=== PATIENT | female | born 1975 | race African-American/Black ===

== ENCOUNTER 2018-08-26 16:53 | Emergency (ER) | payer SELFPAY ==
[2018-08-26 17:42] LABS: Absolute Lymphocytes (CBC) 1.7 K/uL (0.7-4.9); Absolute Monocytes 0.3 K/uL (0.1-1.3); Basophils % 0.8 % (0-1.3); Eosinophils % 1.1 % (0-4.4); Hematocrit 34.8 % (36.0-45.0); Lymphocytes % 32.7 % (15.3-44.8); MPV 10.4 fL (7.6-11.3); Monocytes % 5.7 % (3.3-12.3); RBC Red Blood Cell Count 4.68 M/uL (3.86-4.86)
[2018-08-26 17:56] LABS: BUN Blood Urea Nitrogen 5 mg/dL (7-18); Bicarbonate 23 mmol/L (21-32); Glucose Level 94 mg/dL (74-106); Potassium 3.7 mmol/L (3.5-5.1); Sodium Level 140 mmol/L (136-145)
--- NOTE | 2018-08-26 18:36 | RAD REPORT ---
EXAM DESCRIPTION: CT - Stone Protocol - 08/26/2018 6:26 pm CLINICAL HISTORY: Flank pain. FLANK PAIN COMPARISON: <Comparisons> TECHNIQUE: Axial images were obtained without oral or IV contrast. Lack of contrast limits solid org an and vascular assessment. The [id number] spans the entirety of the system partially obscuring uppermost abdomen and lung bases. Coronal reformatted images were obtained and reviewed. All CT scans are performed using dose optimization technique as appropriate and may include automated exposure control or mA/KV adjustment according to patient size. FINDINGS: The lower lung bundy are clear. Imaged portions of the liver and spleen show no suspicious findings on non-contrast imaging.Cholecyst ectomy clips. The pancreas and adrenal glands are normal. No pathologic lymphadenopathy in the abdome n or pelvis. A punctate calculus is likely present in the distal right ureter without hydronephrosis. Additional p unctate nephrolithiasis is present involving the right kidney inferior calyx. No bowel obstruction, free air, free fluid or abscess. Normal appendix noted. No significant bony abnormality. Enlarged multi-fibroid uterus noted. IMPRESSION: Punctate calculus distal right ureter without hydronephrosis. Additional punctate right nephrolithiasis.
[2018-08-26 18:39] LABS: Urine Blood NEGATIVE (NEG); Urine Glucose NEGATIVE (NEG); Urine Protein 1+ (NEG); Urine Specific Gravity >1.030 (1.005-1.030); Urine pH 5.5 (5.0-7.0)
[2018-08-26 18:48] LABS: Urine RBC NONE SEEN /HPF (NONE SEEN)
[2018-08-26 18:49] LABS: Urine Bacteria 20-50 /HPF (<20); Urine Culture Reflex Order REFLEXED; Urine Trichomonas PRESENT (NONE SEEN)
--- NOTE | 2018-08-26 19:03 | ER ---
Nurse's Notes [facility] Name: Claudio Denis Age: 43 yrs Sex: Female : 1975 Arrival Date: 08/26/2018 Time: 16:57 Bed 13 Private MD: None, None Diagnosis: Urinary tract infection, site not specified;Calculus of kidney and ureter;Trichomoniasis Presentation: 08/26 17:01 Presenting complaint: Patient states: Right mid back pain that radiates to right groin hb x 3 weeks, pain has gotten worse over last 2 days. Also reports blood in urine x 2 days. Transition of care: patient was not received from another setting of care. Onset of symptoms is unknown. Risk Assessment: Do you want to hurt yourself or someone else? Patient reports no desire to harm self or others. Care prior to arrival: None. 17:01 Method Of Arrival: Ambulatory hb 17:01 Acuity: ANTONIO 3 hb 18:42 Initial Sepsis Screen: Does the patient meet any 2 criteria? No. Patient's initial ph sepsis screen is negative. Does the patient have a suspected source of infection? No. Patient's initial sepsis screen is negative. 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 - Social history:: Smoking status: Patient/guardian denies using tobacco. - Ebola Screening: : No symptoms or risks identified at this time. Screenin:42 Abuse screen: Denies threats or abuse. Denies injuries from another. Nutritional ph screening: No deficits noted. Tuberculosis screening: Fall Risk None identified. Assessment: 17:20 General: Appears in no apparent distress. comfortable, obese, well groomed, Behavior is ph calm, cooperative, appropriate for age, Denies fever, chills. Pain: Complains of pain in right low back Pain radiates to right lower quadrant and right groin. Neuro: Level of Consciousness is awake, alert, obeys commands, Oriented to person, place, time, situation. Cardiovascular: Capillary refill < 3 seconds in bilateral fingers Patient's skin is warm and dry. Respiratory: Airway is patent Respiratory effort is even, unlabored, Respiratory pattern is regular, symmetrical. GI: Patient currently denies abdominal pain, nausea, vomiting. Derm: Skin is intact, is healthy with good turgor, Skin is pink, warm \T\ dry. Musculoskeletal: Circulation, motion, and sensation intact. Range of motion: intact in all extremities. 18:13 Reassessment: Patient appears in no apparent distress at this time. Patient and/or ph family updated on plan of care and expected duration. Pain level reassessed. Patient is alert, oriented x 3, equal unlabored respirations, skin warm/dry/pink. Pt ambulated to restroom to attempt to obtain urine sample. 18:41 Reassessment: Patient appears in no apparent distress at this time. Patient and/or ph family updated on plan of care and expected duration. Pain level reassessed. Patient is alert, oriented x 3, equal unlabored respirations, skin warm/dry/pink. pt resting quietly, awaiting CT results. 19:10 Reassessment: Patient appears in no apparent distress at this time. Patient and/or jb4 family updated on plan of care and expected duration. Pain level reassessed. Patient is alert, oriented x 3, equal unlabored respirations, skin warm/dry/pink. Vital Signs: 17:00 BP 137 / 100; Pulse 105; Resp 18; Temp 97.8; Pulse Ox 99% on R/A; Pain 5/10; hb 18:45 BP 128 / 92; Pulse 99; Resp 16; Pulse Ox 99% ; ph 19:10 BP 117 / 75; Pulse 76; Resp 16; Pulse Ox 99% on R/A; jb4 ED Course: 16:57 Patient arrived in ED. sb2 16:58 None, None is Private Physician. sb2 17:03 Triage completed. hb 17:04 Arm band placed on. hb 17:05 Rin Ahumada FNP-C [facility]. kb 17:05 Rudy Navas MD is Attending Physician. kb 17:16 Radiology exam delayed due to test not completed at this time. vm2 17:17 Miesha Jacob, RN is Primary Nurse. ph 17:26 Initial lab(s) drawn, by ky, sent to lab. Inserted saline lock: 20 gauge in right dh3 antecubital area, using aseptic technique. Blood collected. 17:46 Radiology exam delayed due to test not completed at this time. nj 17:52 Radiology exam delayed due to test not completed at this time. nj 18:13 Radiology exam delayed due to test not completed at this time. vm2 18:[address] via wheelchair. vm2 18:24 CT completed. Patient tolerated procedure well. Patient moved back from [place]. nj 18:26 CT Stone Protocol In Process Unspecified. EDMS 18:43 Patient has correct armband on for positive identification. Placed in gown. Bed in low ph position. Call light in reach. Side rails up X 1. Pulse ox on. NIBP on. 19:35 No provider procedures requiring assistance completed. IV discontinued, intact, jb4 bleeding controlled. Administered Medications: 19:27 Drug: Flagyl 2 grams Route: PO; jb4 19:27 Follow up: Response: No adverse reaction jb4 Outcome: 19:03 Discharge ordered by . kb 19:35 Discharged to home ambulatory. jb4 19:35 Condition: stable 19:35 Discharge instructions given to patient, Instructed on discharge instructions, follow up and referral plans. medication usage, Demonstrated understanding of instructions, follow-up care, medications, Prescriptions given X 1. 19:36 Patient left the ED. jb4 Signatures: Dispatcher [employer] EDMS Rin Ahumada, DOG RAISER-Dhruv DOVEP-Miesha Barnes, RN RN Elise Villarreal, Wagner Rojas RN, RN RN jb4 Jun Fuentes Victoria 2 Liz Roberts [facility] Lilibeth Torres [facility]
--- NOTE | 2018-08-26 19:03 | EDPHYS ---
Physician Documentation [facility] Name: Claudio Denis Age: 43 yrs Sex: Female : 1975 Arrival Date: 08/26/2018 Time: 16:57 Bed 13 Private MD: None, None ED Physician Rudy Navas HPI: 08/26 18:47 This 43 yrs old Black Female presents to ER via Ambulatory with complaints of Urinary kb Problem - blood, Back Pain. 18:47 The patient complains of pain in the right flank. The pain radiates to the abdomen. kb Modifying factors: The symptoms are alleviated by nothing. the symptoms are aggravated by nothing. The patient has not experienced similar symptoms in the past. The patient has not recently seen a physician. 18:48 Onset: The symptoms/episode began/occurred 3 week(s) ago. Associated signs and kb symptoms: Pertinent positives: urinary frequency, hematuria. Severity of pain: At its worst the pain was mild moderate in the emergency department the pain is unchanged. 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 - Social history:: Smoking status: Patient/guardian denies using tobacco. - Ebola Screening: : No symptoms or risks identified at this time. ROS: 18:45 Constitutional: Negative for fever, chills, and weight loss, Cardiovascular: Negative kb for chest pain, palpitations, and edema, Respiratory: Negative for shortness of breath, cough, wheezing, and pleuritic chest pain, MS/Extremity: Negative for injury and deformity, Skin: Negative for injury, rash, and discoloration, Neuro: Negative for headache, weakness, numbness, tingling, and seizure. 18:45 Abdomen/GI: Positive for abdominal pain, Negative for nausea, vomiting, and diarrhea, constipation, abdominal cramps, abdominal distension, anorexia. 18:45 : Positive for urinary symptoms, flank pain, urinary frequency, hematuria. Exam: 18:47 Constitutional: This is a well developed, well nourished patient who is awake, alert, kb and in no acute distress. Head/Face: Normocephalic, atraumatic. ENT: Nares patent. No nasal discharge, no septal abnormalities noted. Tympanic membranes are normal and external auditory canals are clear. Oropharynx with no redness, swelling, or masses, exudates, or evidence of obstruction, uvula midline. Mucous membranes moist. Neck: Trachea midline, no thyromegaly or masses palpated, and no cervical lymphadenopathy. Supple, full range of motion without nuchal rigidity, or vertebral point tenderness. No Meningismus. Chest/axilla: Normal chest wall appearance and motion. Nontender with no deformity. No lesions are appreciated. Cardiovascular: Regular rate and rhythm with a normal S1 and S2. No gallops, murmurs, or rubs. Normal PMI, no JVD. No pulse deficits. Respiratory: Lungs have equal breath sounds bilaterally, clear to auscultation and percussion. No rales, rhonchi or wheezes noted. No increased work of breathing, no retractions or nasal flaring. Skin: Warm, dry with normal turgor. Normal color with no rashes, no lesions, and no evidence of cellulitis. MS/ Extremity: Pulses equal, no cyanosis. Neurovascular intact. Full, normal range of motion. Neuro: Awake and alert, GCS 15, oriented to person, place, time, and situation. Cranial nerves II-XII grossly intact. Motor strength 5/5 in all extremities. Sensory grossly intact. Cerebellar exam normal. Normal gait. 18:47 Abdomen/GI: Inspection: abdomen appears normal, Bowel sounds: normal, in all quadrants, Palpation: soft, in all quadrants, mild abdominal tenderness, in the right lower quadrant and left lower quadrant, moderate abdominal tenderness, in the suprapubic area. Vital Signs: 17:00 BP 137 / 100; Pulse 105; Resp 18; Temp 97.8; Pulse Ox 99% on R/A; Pain 5/10; hb 18:45 BP 128 / 92; Pulse 99; Resp 16; Pulse Ox 99% ; ph 19:10 BP 117 / 75; Pulse 76; Resp 16; Pulse Ox 99% on R/A; jb4 MDM: 17:06 Patient medically screened. kb 18:46 Data reviewed: vital signs, nurses notes. Data interpreted: Pulse oximetry: on room air kb is 99 %. Interpretation: normal. Counseling: I had a detailed discussion with the patient and/or guardian regarding: the historical points, exam findings, and any diagnostic results supporting the discharge/admit diagnosis, lab results, radiology results, the need for outpatient follow up, a family practitioner, a urologist, to return to the emergency department if symptoms worsen or persist or if there are any questions or concerns that arise at home. 08/26 17:13 Order name: CBC with Diff; Complete Time: 17:47 kb 08/26 17:13 Order name: Basic Metabolic Panel; Complete Time: 18:00 kb 08/26 18:22 Order name: Urine Dipstick--Ancillary (enter results); Complete Time: 18:42 em1 08/26 18:22 Order name: Urine --Ancillary (enter results); Complete Time: 18:42 em1 08/26 18:23 Order name: Urine Microscopic Only; Complete Time: 18:53 ss 08/26 18:50 Order name: Urine Culture EDMS 08/26 17:06 Order name: Urine Dipstick-Ancillary (obtain specimen); Complete Time: 18:20 kb 08/26 17:13 Order name: IV Start; Complete Time: 17:30 kb 08/26 17:13 Order name: CT Stone Protocol; Complete Time: 18:42 kb 08/26 18:22 Order name: Urine Test (obtain specimen); Complete Time: 18:22 em1 Administered Medications: 19:27 Drug: Flagyl 2 grams Route: PO; jb4 19:27 Follow up: Response: No adverse reaction jb4 Disposition: 08/26/18 19:03 Discharged to Home. Impression: Urinary tract infection, site not specified, Calculus of kidney and ureter, Trichomoniasis. - Condition is Stable. - Discharge Instructions: Trichomoniasis, Kidney Stones, [id number], Urinary Tract Infection, Adult, [id number], Uterine Fibroids, [id number], Dietary Guidelines to Help Prevent Kidney Stones. - Prescriptions for Macrobid 100 mg Oral Capsule - take 1 capsule by ORAL route every 12 hours for 10 days; 20 capsule. - Medication Reconciliation Form, Thank You Letter, Antibiotic Education, Prescription Opioid Use form. - Follow up: Emergency Department; When: As needed; Reason: Worsening of condition. Follow up: Private Physician; When: 2 - 3 days; Reason: Recheck today's complaints, Continuance of care, Re-evaluation by your physician. Addendum: 08/28/2018 07:12 Co-signature as Attending Physician, Rudy Navas MD. r n Signatures: Dispatcher [employer] EDRin Ledesma, BANK MANAGER-C BANK MANAGER-CkRudy Penny MD MD rn Martinez, Eric em1 Elise Vargas, RN RN Wagner Vizcarra RN RN jb4 Corrections: (The following items were deleted from the chart) 08/26 19:36 19:03 08/26/2018 19:03 Discharged to Home. Impression: Urinary tract infection, site jb4 not specified; Calculus of kidney and ureter; Trichomoniasis. Condition is Stable. Forms are Medication Reconciliation Form, Thank You Letter, Antibiotic Education, Prescription Opioid Use. Follow up: Emergency Department; When: As needed; Reason: Worsening of condition. Follow up: Private Physician; When: 2 - 3 days; Reason: Recheck today's complaints, Continuance of care, Re-evaluation by your physician. kb
[2018-08-26] MEDS ORDERED: metroNIDAZOLE 500 MG TABLET ONE (19:28)
== END 2018-08-26 19:36 | disposition home or self-care (01) ==
LOC: ER 16:53
DX: N20.2 Calculus of kidney with calculus of ureter (principal); N39.0 Urinary tract infection, site not specified; A59.9 Trichomoniasis, unspecified
CPT/HCPCS: 36415; 74176; 76377; 80048; 81003; 81015; 81025; 85025; 87086; 87088; 99284